=== PATIENT | male | born 1960 ===

== ENCOUNTER 2017-04-22 14:41 | Inpatient (IN) | payer MEDICAID ==
[2017-04-22 14:42] VITALS: BMI 26.6
[2017-04-22 16:15] LABS: BASO % 0.8 % (0.0-2.0); EOS # 0.4 K/uL (0.0-0.7); EOS % 7.4 % (0.0-4.0); LYMPH # 1.6 K/uL (1.0-4.3); LYMPH % 33.3 % (20.0-40.0); MEAN CORPUSCULAR HEMOGLOBIN 31.1 pg (27.0-31.0); MEAN CORPUSCULAR HGB CONC 34.8 g/dL (33.0-37.0); MEAN PLATELET VOLUME 7.3 fL (7.2-11.7); MONO # 0.6 K/uL (0.0-0.8); MONO % 12.9 % (0.0-10.0); NEUT # 2.2 K/uL (1.8-7.0); NEUT % 45.6 % (50.0-75.0); RBC 4.14 Mil/uL (4.40-5.90); RED CELL DISTRIBUTION WIDTH 16.7 % (11.5-14.5); WHITE BLOOD COUNT 4.9 K/uL (4.8-10.8)
--- NOTE | 2017-04-22 16:15 | C.PDOC ---
History Of Present Illness 56 y/o male presents to ED requesting detox from alcohol, heroin, and Xanax. Notes last use was yesterday. Denies SI, HI, or any active physical complaints at this time. Denies chest pain, SOB, n/v/d, abdominal pain, back pain, headache , dizziness, or fever. Time Seen by Provider: 04/22/17 15:33 Chief Complaint (Nursing): Substance Abuse History Per: Patient History/Exam Limitations: no limitations Onset/Duration Of Symptoms: Days Current Symptoms Are (Timing): Still Present Suicide/Self Injury Attempted (Context): None Modifying Factor(s): Alcohol Associated Symptoms: denies: Suicidal Thoughts, Suicidal Plan Involuntary Hold By: None Additional History Per: Patient Past Medical History Reviewed: Historical Data, Nursing Documentation, Vital Signs Vital Signs: Last Vital Signs Temp 97.6 F 04/22/17 15:23 Pulse 108 H 04/22/17 15:23 Resp 18 04/22/17 15:23 BP 123/89 04/22/17 15:23 Pulse Ox 95 04/22/17 16:23 - Medical History PMH: Asthma Denies: Diabetes, Hepatitis, HIV, HTN, Chronic Kidney Disease, Seizures, Sexually Transmitted Disease - [facility] Procedures DETOXIFICATION SERVICES FOR SUBSTANCE ABUSE TREATMENT (01/04/16) GROUP [employer]SI[employer] TE[employer]ER FOR SUBSTANCE ABUSE TREATMENT, PSYCHOEDUCATION (10/21/15) Family History: States: Unknown Family Hx - Social History Hx Tobacco Use: No Hx Alcohol Use: Yes Hx Substance Use: Yes - Immunization History Hx Tetanus Toxoid Vaccination: No Hx Influenza Vaccination: No Hx Pneumococcal Vaccination: No Review Of Systems Except As Marked, All Systems Reviewed And Found Negative. Constitutional: Negative for: Fever, Chills Cardiovascular: Negative for: Chest Pain, Palpitations Respiratory: Negative for: Cough, Shortness of Breath Gastrointestinal: Negative for: Nausea, Vomiting, Abdominal Pain Psych: Negative for: Suicidal ideation Physical Exam - Physical Exam Appears: Non-toxic, No Acute Distress Skin: Warm, Dry, No Rash Head: Normacephalic Nose: No Flaring Oral Mucosa: Moist, No Drooling Neck: Normal ROM, Supple Cardiovascular: Rhythm Regular Respiratory: No Accessory Muscle Use, No Rales, No Rhonchi, No Wheezing Gastrointestinal/Abdominal: Soft, No Tenderness Extremity: Normal ROM, No Deformity Neurological/Psych: Oriented x3, Normal Speech ED Course And Treatment - Laboratory Results Result Diagrams: 04/22/17 16:04 04/22/17 16:04 Lab Interpretation: No Acute Changes ECG: Interpreted By Me, Viewed By Me ECG Rhythm: Sinus Tachycardia Interpretation Of ECG: ST@107/min, NAD, Qwave in V2, no acute T wave or ST-T changes. O2 Sat by Pulse Oximetry: 95 (RA) Pulse Ox Interpretation: Normal - Radiology CXR: Interpreted by Me, Viewed By Me CXR Interpretation: Yes: No Acute Disease Progress Note: EKG, CXR, blood work, UA ordered and reviewed. Blood work review and appears normal. EKG, CXR- no acute findings. Delay, await for Urine sample from patient. AT 18:38, Urine toxicology review. Pt is medically cleared for PES evaluation. After pt was seen by PES, case discussed with and admission arranged to detox floor w/dx Opoid depandance, severe. Disposition - Disposition Disposition: HOSPITALIZED Disposition Time: 20:40 Condition: STABLE Forms: [employer] (Bengali) - Clinical Impression Clinical Impression: Drug dependence, Opioid use disorder, severe, dependence - PA / [employer] / Resident Statement MD/DO has reviewed & agrees with the documentation as recorded. - Scribe Statement The provider has reviewed the documentation as recorded by the Scribe Aly Vaughn All medical record entries made by the Scribe were at my direction and personally dictated by me. I have reviewed the chart and agree that the record accurately reflects my personal performance of the history, physical exam, medical decision making, and the department course for this patient. I have also personally directed, reviewed, and agree with the discharge instructions and disposition.
[2017-04-22 16:16] LABS: HEMOGLOBIN 12.9 g/dL (12.0-18.0); MEAN CELL VOLUME 89.4 fL (80.0-94.0)
[2017-04-22 16:20] LABS: ALB/GLOB RATIO 1.2 (1.0-2.1); ALBUMIN 4.1 g/dL (3.5-5.0); ALT/SGPT 32 U/L (21-72); AST/SGOT 36 U/L (17-59); BLOOD UREA NITROGEN 10 mg/dL (9-20); GFR AFRICAN-AMERICAN > 60; GFR NON-AFRICAN AMERICAN > 60
--- NOTE | 2017-04-22 18:09 | RAD ---
HISTORY: Detox/Psy COMPARISON: No prior. TECHNIQUE: Chest PA and lateral FINDINGS: LUNGS: No active pulmonary disease. PLEURA: No significant pleural effusion identified. No pneumothorax apparent. CARDIOVASCULAR: Normal. OSSEOUS STRUCTURES: No significant abnormalities. VISUALIZED UPPER ABDOMEN: Normal. OTHER FINDINGS: None. IMPRESSION: No active disease.
[2017-04-22 18:48] LABS: SQUAMOUS EPITHIAL < 1 /hpf (0-5); URINE BACTERIA RARE (<OCC); URINE BILIRUBIN NEGATIVE (NEGATIVE); URINE CLARITY Hazy (Clear); URINE COLOR Amber (YELLOW); URINE GLUCOSE (UA) NORMAL (Normal); URINE HYALINE CAST >20 /lpf (0-2); URINE LEUKOCYTE ESTERASE NEG Leu/uL (Negative); URINE NITRATE NEGATIVE (NEGATIVE); URINE PROTEIN 1+ mg/dL (NEGATIVE)
[2017-04-22 18:49] LABS: URINE BLOOD 3+ (NEGATIVE)
[2017-04-22 19:06] LABS: PHENCYCLIDINE, UR NEGATIVE (NEGATIVE)
[2017-04-22 19:31] LABS: BARBITURATES, UR POSITIVE (NEGATIVE); BENZODIAZEPINES, UR POSITIVE (NEGATIVE); OPIATES, UR POSITIVE (NEGATIVE)
--- NOTE | 2017-04-22 20:53 | PCM.BM ---
<Urmila Gonsalez - Last Filed: 04/22/17 20:51> Treatment Plan Problems - Problems identified on initial assessmt potiential for opiate withdrawal Date Initiated: 04/22/17 Time Initiated: 20:52 Assessment reference: NA Status: Active potiential for autonomic instability related to alcohol withdrawal Date Initiated: 04/22/17 Time Initiated: 20:52 Assessment reference: NA Status: Active Treatment assets and liabiliti Patient Assests: ADL independent, physically healthy, cognitively intact Patient Liabilities: substance abuse - Milieu Protocol Maintain good personal hygiene: daily Encourage regular showers, daily Remind patient to perform daily oral care, daily Assist patient to perform ADL's Maintain personal safety: every shift Educate patient to report safety concerns to staff, every shift Monitor environment for contraband/sharps Medication safety: Monitor for expected outcome, potential side effects: every shift, Assess barriers to learning: every shift, Assess readiness for medication education: every shift <Tuyet Ennis - Last Filed: 04/25/17 23:18> - Diagnosis (1) Opioid use disorder, severe, dependence Status: Acute Interventions: 04/25/17 23:18 * Assess 7x/week regarding severity of withdrawal * Educate regarding risks, benefits, side effects and alternatives of medications * Use Motivational Interviewing for abstinence * Use CBT for relapse prevention * Medication management for withdrawal symptoms * Encourage medication assisted treatment *
[2017-04-23] MEDS: Multiple Vitamins Tab PO SCH (10:34)
[2017-04-23] MEDS ORDERED: Buprenorphine Hydrochloride 2 mg SL ONE ×2 (12:03→14:00)
[2017-04-23] MEDS ORDERED: Buprenorphine Hydrochloride 2 mg SL SCH (13:04)
--- NOTE | 2017-04-23 17:20 | PCM.PSYCH ---
Initial Psychiatric Evaluation - Initial Psychiatric Evaluation Type of Admission: Voluntary Legal Status: Capacity Chief Complaint (in patient's own words): I'm withdrawing from his substance use and any treatment. History of Present Illness and Precipitating Events: Patient is a 56 years old, single, unemployed, male with no psychiatric history was admitted for the treatment of withdrawal from his substance use including alcohol, heroin and anxiolytics. Alcohol: Started at the age of 15 years, increased gradually. Reported he currently he was consuming 2 pints of vodka and 10 beers daily. His last drink was yesterday. His longest period of abstinence was 1 years a few years ago. History of two previous detox at [facility]. History of one rehabilitation at [facility]. Heroin: Started using heroine at the age of 15 years, increased gradually. Reported he was using 16-18 bags daily, snorting. Last use reported yesterday. Anxiolytics: Reported he started using Xanax 15 years ago, was using 2 pills each of 2 mg daily, last used reported yesterday. Was getting Xanax from [facility]. Also has history of cocaine use in the past, last use reported one year ago. He has history of asthma. Was born in [place]. Came to [facility] at the age of 11 years. Has seventh grade of education. He is not working for more than 2 year. 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 He is not and has no children. He lives alone. His height is 5 feet 8 inches and weight is 160 pounds. He doesn't smoke cigarettes. Current Medications: Active Medications Generic Name Dose Route Start Last Admin Trade Name Freq PRN Reason Stop Dose Admin Albuterol 1 puff 04/22/17 22:02 Ventolin Hfa 90 Mcg/Actuation (8 G) INH RQ6 PRN sob Buprenorphine HCl 6 mg 04/24/17 12:04 Subutex SL 04/27/17 12:03 .TAPER KARRIE Taper Chlordiazepoxide 25 mg 04/23/17 00:00 04/23/17 12:20 Librium PO 04/26/17 23:59 25 mg Q6 KARRIE Administration Taper Chlordiazepoxide 25 mg 04/22/17 21:05 04/22/17 22:01 Librium PO 25 mg Q4H PRN Administration Alcohol Withdrawal Clonidine HCl 0.1 mg 04/23/17 11:49 04/23/17 16:25 Catapres PO 0.1 mg Q8 PRN Administration COWS Score More or Equal to 5 Dicyclomine HCl 20 mg 04/23/17 14:00 04/23/17 13:39 Bentyl PO 20 mg QID KARRIE Administration Folic Acid 1 mg 04/23/17 10:00 04/23/17 10:34 Folic Acid PO 1 mg DAILY KARRIE Administration Gabapentin 400 mg 04/23/17 14:00 04/23/17 13:39 Neurontin PO 400 mg TID KARRIE Administration Hydroxyzine HCl 25 mg 04/23/17 11:52 Atarax PO Q6 PRN Anxiety Ibuprofen 600 mg 04/23/17 11:58 Motrin Tab PO Q8 PRN Pain, moderate (4-7) Loperamide HCl 2 mg 04/23/17 11:49 Imodium PO Q8 PRN Diarrhea Multivitamins 1 tab 04/23/17 10:00 04/23/17 10:34 Hexavitamin PO 1 tab DAILY KARRIE Administration Ondansetron HCl 4 mg 04/23/17 11:49 Zofran Tab PO Q8 PRN Nausea/Vomiting Thiamine HCl 100 mg 04/23/17 10:00 04/23/17 10:34 Vitamin B1 Tab PO 100 mg DAILY KARRIE Administration Trazodone HCl 50 mg 04/22/17 21:05 04/22/17 22:01 Desyrel PO 50 mg HS PRN Administration Insomnia Past Psychiatric History - Past Psychiatric History Previous Treatment History: Inpatient At [facility]: [facility] History of Abuse: None reported History of ETOH/Drug Use: See HPI History of Family Illness: None reported Pertinent Medical Hx (Current Medical&Sleep Prob, Allergies): Allergies Allergy/AdvReac Type Severity Reaction Status Date / Time Penicillins Allergy Verified 04/22/17 15:27 Albuterol HFA [Ventolin HFA 90 mcg/actuation (8 g)] 1 puff IH PRN PRN 01/02/16 Alprazolam [Xanax] 0.5 mg PO PRN PRN 01/02/16 traZODone [Desyrel] 100 mg PO HS PRN 04/22/17 Asthma Review of Systems - Psychiatric Psychiatric: Other Mental Status Examination - Personal Presentation Personal Presentation: Looks stated age - Affect Affect: Other (Appropriate) - Motor Activity Motor Activity: Calm - Reliability in Providing Information Reliability in Providing Information: Fair - Speech Speech: Organized - Mood Mood: Anxious - Formal Thought Process Formal Thought Process: No Impairment - Hallucinations/Delusions Hallucinations: Other (None reported) Delusions: Other - Obsessions/Compulsions Obsessions: None Compulsions: None - Cognitive Functions Orientation: Person, Place, Situation, Time Sensorium: Alert Attention/Concentration: Attentive Abstract Thinking: [place] Estimate of Intelligence: Average Judgement: Intact, as evidence by: Insight regarding need for hospitalization Memory: Recent intact, as evidence by: 3/3 object recall, Remote intact, as evidenced by: Ability to recall historical events - Risk Risk: Withdrawal, Diminished functioning - Strength & Assets Inventory Strength & Assets Inventory: Cooperative - Limitations Limitations: Living alone DSM 5 DX - DSM 5 DSM 5 Diagnosis: Alcohol withdrawal symptoms severe Opiate withdrawal symptoms severe Anxiolytics use disorder moderate - Recommended/Plan of Treatment Treatment Recommendations and Plan of Treatment: Patient education Supportive therapy We'll start Librium detox protocol for alcohol withdrawal symptoms We will start Subutex for opiate withdrawal symptoms. Patient prefers Subutex over methadone. When necessary medications Albuterol for asthma Projected ELOS: 4-5 days Prognosis: Good - Smoking Cessation Smoking Cessation Initiated: No Reason for not providing: Patient doesn't smoke cigarettes
[2017-04-23] MEDS: Albuterol HFA 90 mcg/actuation (8 g) INH PRN (20:44)
[2017-04-24] MEDS: Multiple Vitamins Tab PO SCH (09:45)
[2017-04-24] MEDS ORDERED: Buprenorphine Hydrochloride 2 mg SL SCH ×3 (12:04→13:30)
--- NOTE | 2017-04-24 15:52 | PCM.PYCHPN ---
Psychiatric Progress Note - Psychiatric Progress Note Patient seen today, length of contact: 15 minutes Patient Chief Complaint: I'm feeling little better with the treatment. Problems Identified/Issues Discussed: Patient seen, chart reviewed, case discussed with the staff. Issues related to illness and treatment were discussed with the staff and the patient. Reported compliant with treatment with no adverse affects. Tolerating treatment very well. Reported feeling little better with few withdrawal symptoms. After care discussed with the patient. At the time of evaluation, patient was awake alert oriented 3, had no delusions , no auditory or visual hallucinations, no suicidal ideations or homicidal ideations. Medical Problems: Asthma Diagnostic Results: Reviewed DSM 5 Symptoms Update: Some improvement with treatment. Medication Change: No Medical Record Reviewed: Yes Mental Status Examination - Cognitive Function Orientation: Person, Place, Situation, Time Memory: Intact Attention: WNL Concentration: WNL Association: WNL Fund of Knowledge: WN Decription of patient's judgement and insights: Fair - Mood Mood: Anxious - Affect Affect: Other (Appropriate) - Speech Speech: Appropriate - Formal Thought Process Formal Thought Process: No Impairment Psychotic Thoughts and Behaviors: None - Suicidal Ideation Suicidal Ideation: No - Homicidal Ideation Homicidal Ideation: No Goal/Treatment Plan - Goal/Treatment Plan Need for Continued Stay: Remain at risks for inpatient hospitalization, Discharge may exacerbated symptoms, Severe functional impairment Progress Toward Problem(s) and Goals/Treatment Plan: Patient education Supportive therapy Continue treatment as before CBT for relapse prevention [place] for abstinence Estimated Date of D/C: 04/27/17 - Smoking Cessation Smoking Cessation Initiated: No
[2017-04-24] MEDS: Albuterol HFA 90 mcg/actuation (8 g) INH PRN (18:38)
[2017-04-25] MEDS: Multiple Vitamins Tab PO SCH (09:49)
[2017-04-25] MEDS: Albuterol HFA 90 mcg/actuation (8 g) INH PRN (09:49)
[2017-04-25] MEDS ORDERED: Buprenorphine Hydrochloride 2 mg SL ONE (09:52)
[2017-04-25 10:22] VITALS: RESP 18
--- NOTE | 2017-04-25 14:37 | PCM.PYCHPN ---
Psychiatric Progress Note - Psychiatric Progress Note Patient seen today, length of contact: 16 minutes Patient Chief Complaint: "Im doing much better" Problems Identified/Issues Discussed: The pt is seen, chart reviewed, case discussed with staff. Support given, CBT and PR used briefly No new symptoms reported, improving slowly and needs more time. Patient is doing well and has no complaints. His detox is going well, sleeping okay, and has a good appetite. He is optimistic about discharge tomorrow. No SEs from medications, risks discussed. After care discussed Medication Change: Yes (detox changes daily) Medical Record Reviewed: Yes Mental Status Examination - Cognitive Function Orientation: Person, Place, Situation, Time Memory: Intact Attention: WNL Concentration: WNL Association: WNL Fund of Knowledge: WNL - Mood Mood: Neutral - Affect Affect: Broad - Speech Speech: Appropriate - Language Language: Word Retrieval - Formal Thought Process Formal Thought Process: No Impairment - Suicidal Ideation Suicidal Ideation: No - Homicidal Ideation Homicidal Ideation: No Goal/Treatment Plan - Goal/Treatment Plan Need for Continued Stay: Remain at risks for inpatient hospitalization, Discharge may exacerbated symptoms, Severe functional impairment Progress Toward Problem(s) and Goals/Treatment Plan: Heroin detox with subutex taper Alcohol detox with librium taper Gabapentin for augmentation Albuterol for asthma As needed medications All risks, benefits and alternatives of the meds discussed,and the pt agreed and understood. Attend groups and activities Supportive therapy and psychoeducation [place] for abstinence CBT for relapse prevention Encourage MAT Refer to rehab or IOP, and self-help groups Estimated Date of D/C: 04/27/17 - Smoking Cessation Smoking Cessation Initiated: No Reason for not providing: does not smoke
--- NOTE | 2017-04-26 08:42 | PCM.PYCHDC ---
Mental Status Examination - Mental Status Examination Orientation: Person Discharge Summary - Discharge Note Consultations:: List each consultation separately and include: 1. Reason for request. 2. Findings. 3. Follow-up Summary of Hospital Course include:: 1. Description of specific treatment plan utilized for patients during their course of treatmen. 2. Summarize the time- course for resolution of acute symptoms and/or regressed behaviors. 3. Describe issues identified and worked on during hospitalization. 4. Describe medication utilized. 5. Describe medical problems identified and treated. 6. Reassessment of suicide risk - Diagnosis (1) Opioid use disorder, severe, dependence Current Visit: Yes Status: Acute - Final Diagnosis (DSM 5) Condition upon Discharge: STABLE Disposition: HOME/ ROUTINE Follow-up Treatment Plan: Heroin detox with subutex taper Alcohol detox with librium taper Gabapentin for augmentation Albuterol for asthma As needed medications All risks, benefits and alternatives of the meds discussed,and the pt agreed and understood. Attend groups and activities Supportive therapy and psychoeducation [place] for abstinence CBT for relapse prevention Encourage MAT Refer to rehab or IOP, and self-help groups Prescriptions/Medication Reconciliation: Gabapentin [Neurontin] 400 mg PO TID #90 cap traZODone [Desyrel] 100 mg PO HS PRN #30 tab PRN Reason: Insomnia
[2017-04-26] MEDS: Multiple Vitamins Tab PO SCH (09:52)
[2017-04-26 10:00] VITALS: BP 129/86; PULSE 101; TEMP 98.4; O2SAT 97
[2017-04-26] MEDS ORDERED: Buprenorphine Hydrochloride 2 mg SL ONE (10:00)
--- NOTE | 2017-04-28 23:13 | CARD ---
APPROVED REPORT EKG Measurement Heart [id number] <Conclusion> Sinus tachycardia Septal infarct, age undetermined Abnormal ECG
== END 2017-04-26 10:15 | disposition home or self-care (01) | DRG 897 ==
LOC: C.ER 14:41 → C.7D 20:41
PROC: HZ2ZZZZ Detoxification Services for Substance Abuse Treatment (ICD-10-PCS; principal; 2017-04-22)
DX: F10.239 Alcohol dependence with withdrawal, unspecified (principal); F11.23 Opioid dependence with withdrawal; F10.220 Alcohol dependence with intoxication, uncomplicated; J45.909 Unspecified asthma, uncomplicated; F10.230 Alcohol dependence with withdrawal, uncomplicated; Y90.6 Blood alcohol level of 120-199 mg/100 ml; F19.10 Other psychoactive substance abuse, uncomplicated; F13.10 Sedative, hypnotic or anxiolytic abuse, uncomplicated